=== PATIENT | female | born 1970 | race Caucasian/White ===

== ENCOUNTER 2016-07-17 20:14 | Emergency (ER) | payer MEDICAID ==
--- NOTE | ~2016-07-17 | CT55 ---
[facility] A Service of [facility] RADIOLOGY TEXT RESULTS PATIENT: MALIHA FARRAR LOCATION: [facility] : 70 UNIT #: [id number] AGE: [address]: Elena Platt MD SEX: F ORDER DR: [id number] [address] [address] [id number] E MR#: [id number] Acc #: [id number] NAME: MALIHA FARRAR : 1970 SEX: F STUDY DATE/TIME: 07/18/2016 3:25 UNIT: [facility] ROOM: STUDY DESCRIPTION: CT Chest W Con Attending Physician: Elena Platt M.D. Ordering Physician: Maliha Gutierrez M.D. Primary Care Physician: No Primary Care Physician MEDICAL IMAGING REPORT This report is preliminary unless electronic signature is present EXAM CT scan of the chest with contrast INDICATION Chest pain across upper chest for 5 days. COMPARISON There is no comparison. TECHNIQUE Patient was given 100 mL of Isovue-370 and axial 5 mm images were obtained through the abdomen and pelvis. This CT exam was performed with one or more of the following radiation dose reduction techniques: Automatic exposure control, adjustment of mA and/or kV according to patient size, and iterative reconstruction. FINDINGS The aorta is normal in size. There is no dissection. There is no mediastinal or hilar adenopathy. The visualized portions of the upper abdomen are normal. The bones are normal. The lungs are clear. IMPRESSION Normal CT scan of the chest with contrast. Dictated by... Shawn Jimenez M.D. THIS IS AN ELECTRONICALLY VERIFIED REPORT Shawn Jimenez M.D. at 07/18/2016 1:22 PM FEL/aa [facility] A Service of [facility] RADIOLOGY TEXT RESULTS PATIENT: MALIHA FARRAR LOCATION: [facility] : 70 UNIT #: [id number] AGE: [address]: Elena Platt MD SEX: F ORDER DR: TD: 07/18/2016 10:23 JOB #: [id number] MEDICAL IMAGING REPORT Page 1 of 1 COPY
--- NOTE | ~2016-07-17 | CR229 ---
[facility] A Service of [facility] RADIOLOGY TEXT RESULTS PATIENT: JAILENE FARRAR LOCATION: [facility] : 70 UNIT #: [id number] AGE: [address]: Elena Platt MD SEX: F ORDER DR: [id number] [facility] [address] [place], [place] [address] [id number] E MR#: [id number] Acc #: [id number] NAME: JAILENE FARRAR. : 1970 SEX: F STUDY DATE/TIME: 07/18/2016 0:17 UNIT: [facility] ROOM: STUDY DESCRIPTION: CR Shoulder Min 2 View Lt Attending Physician: Elena Platt M.D. Ordering Physician: Feng Gould M.D. Primary Care Physician: No Primary Care Physician MEDICAL IMAGING REPORT This report is preliminary unless electronic signature is present EXAM Left shoulder HISTORY Left shoulder pain after lifting injury a week ago. FINDINGS AP view with internal and external rotation of the shoulder girdle shows satisfactory relationship of the humeral head and glenoid fossa. The joint space is normal. There is no identifiable fracture or dislocation or bony destructive process about the shoulder girdle anatomy. The acromioclavicular joint is normal. There is no radiopaque foreign body in the region. IMPRESSION Normal shoulder. Dictated by... Shawn Jimenez M.D. THIS IS AN ELECTRONICALLY VERIFIED REPORT Shawn Jimenez M.D. at 07/18/2016 1:22 PM JOHANNY/baldomero TD: 07/18/2016 10:05 JOB #: [id number] MEDICAL IMAGING REPORT Page 1 of 1 COPY
[~2016-07-17 20:14] MED LIST: ATIVAN PO
[2016-07-18 01:23] LABS: BASOPHIL% 0.3 % (0-2.5); EOSINOPHIL# 0.1 X10e3 (0-0.7); EOSINOPHIL% 1.5 % (0.0-7.0); HEMATOCRIT 33.4 % (35.0-45.0); HEMOGLOBIN 11.4 gm/dL (12.0-16.0); LYMPHOCYTE% 26.9 % (17.0-45.0); MEAN CELL VOLUME 89.1 FL (83-96); MEAN CORPUSCULAR HEMOGLOBIN 30.3 PG (28-34); MEAN CORPUSCULAR HGB CONC 34.1 g/dL (30-36); MEAN PLATELET VOLUME 9.6 FL (6.5-11.5); MONOCYTE# 0.6 X10e3 (0-1.0); MONOCYTE% 7.3 % (3.0-12.0); NEUTROPHIL# 4.8 X10e3 (1.5-7.1); PLATELET COUNT 170 X10e3 (140-420); RED BLOOD COUNT 3.75 X10e (3.90-5.30); RED CELL DISTRIBUTION WIDTH 12.4 % (11.0-15.5); WHITE BLOOD COUNT 7.6 X10e3 (4.0-10.5)
[2016-07-18 01:25] LABS: DIFF IND NO
[2016-07-18 01:42] LABS: CALCIUM SERUM 8.8 mg/dL (8.4-10.2); CREATININE SERUM 0.7 mg/dL (0.6-1.4); GLOM FILT RATE Estimated 104.6 mL/min (>60); POTASSIUM 3.7 mmol/L (3.5-5.1)
== END 2016-07-18 04:15 | disposition home or self-care (01) ==
LOC: CED 20:14
PROVIDERS: Emergency Medicine
DX: S16.1XXA Strain of muscle, fascia and tendon at neck level, initial encounter (principal); L03.221 Cellulitis of neck; F17.200 Nicotine dependence, unspecified, uncomplicated; Z88.1 Allergy status to other antibiotic agents; Z88.0 Allergy status to penicillin; Z88.8 Allergy status to other drugs, medicaments and biological substances; X58.XXXA Exposure to other specified factors, initial encounter
CPT/HCPCS: 71260; 73030; 80048; 85025; 99283; Q9967